=== PATIENT | male | born 1975 | race African-American/Black ===

== ENCOUNTER 2018-02-18 17:00 | Outpatient (RCR) | payer OTHER | END 2018-02-28 12:26 | disposition home or self-care (01) | LOC: WSPT 17:00 | DX: M54.5 Low back pain (principal); G89.29 Other chronic pain ==

== ENCOUNTER → 2018-07-30 | Outpatient (CLI) | payer OTHER | LOC: MHCPAIN 08:32 | DX: G89.29 Other chronic pain (principal); M47.817 Spondylosis without myelopathy or radiculopathy, lumbosacral region; M54.16 Radiculopathy, lumbar region; M53.3 Sacrococcygeal disorders, not elsewhere classified | CPT/HCPCS: G0463 ==

== ENCOUNTER → 2018-08-04 | Outpatient (CLI) | payer OTHER | LOC: MHCPAIN 10:39 | DX: M47.817 Spondylosis without myelopathy or radiculopathy, lumbosacral region (principal); M54.16 Radiculopathy, lumbar region | CPT/HCPCS: J1100; Q9967 ==

== ENCOUNTER → 2018-08-14 | Outpatient (CLI) | payer OTHER | LOC: MHCPAIN 08-07 13:50 | DX: M47.817 Spondylosis without myelopathy or radiculopathy, lumbosacral region (principal); M54.16 Radiculopathy, lumbar region | CPT/HCPCS: J1040; Q9967 ==

== ENCOUNTER → 2018-09-03 | Outpatient (CLI) | payer OTHER | LOC: MHCPAIN 15:48 | DX: G89.29 Other chronic pain (principal); M47.817 Spondylosis without myelopathy or radiculopathy, lumbosacral region; M54.16 Radiculopathy, lumbar region; M53.3 Sacrococcygeal disorders, not elsewhere classified | CPT/HCPCS: G0463 ==

== ENCOUNTER → 2018-09-11 | Outpatient (CLI) | payer OTHER | LOC: MHCPAIN 08:57 | DX: M47.817 Spondylosis without myelopathy or radiculopathy, lumbosacral region (principal); M54.16 Radiculopathy, lumbar region | CPT/HCPCS: J1100; Q9967 ==

== ENCOUNTER → 2018-10-15 | Outpatient (CLI) | payer OTHER | LOC: MHCPAIN 15:05 | DX: G89.29 Other chronic pain (principal); M47.817 Spondylosis without myelopathy or radiculopathy, lumbosacral region; M54.16 Radiculopathy, lumbar region; M53.3 Sacrococcygeal disorders, not elsewhere classified | CPT/HCPCS: G0463 ==

== ENCOUNTER 2019-01-01 15:00 | Outpatient (RCR) | payer OTHER | END 2019-01-04 | disposition home or self-care (01) | LOC: WSC | DX: M47.27 Other spondylosis with radiculopathy, lumbosacral region (principal); M53.3 Sacrococcygeal disorders, not elsewhere classified ==

== ENCOUNTER → 2019-01-14 | Outpatient (CLI) | payer OTHER | LOC: MHCPAIN 15:23 | DX: G89.29 Other chronic pain (principal); M47.817 Spondylosis without myelopathy or radiculopathy, lumbosacral region; M54.16 Radiculopathy, lumbar region; M53.3 Sacrococcygeal disorders, not elsewhere classified | CPT/HCPCS: G0463 ==

== ENCOUNTER → 2019-01-22 | Outpatient (CLI) | payer OTHER | LOC: MHCPAIN 10:05 | DX: M47.817 Spondylosis without myelopathy or radiculopathy, lumbosacral region (principal); M54.16 Radiculopathy, lumbar region | CPT/HCPCS: J1100; Q9967 ==

== ENCOUNTER → 2019-02-04 | Outpatient (CLI) | payer OTHER | LOC: MHCPAIN 13:00 | DX: G89.29 Other chronic pain (principal); M47.817 Spondylosis without myelopathy or radiculopathy, lumbosacral region; M54.16 Radiculopathy, lumbar region; M53.3 Sacrococcygeal disorders, not elsewhere classified | CPT/HCPCS: G0463 ==

== ENCOUNTER 2023-05-24 13:06 | Outpatient (RCR) | payer OTHER | END 2023-06-05 | disposition home or self-care (01) | LOC: WSPT | DX: M12.58 Traumatic arthropathy, other specified site (principal); M54.50 Low back pain, unspecified; G89.29 Other chronic pain ==

== ENCOUNTER 2023-07-31 15:00 | Outpatient (RCR) | payer OTHER | END 2023-08-04 | disposition home or self-care (01) | LOC: WSPT | DX: M12.58 Traumatic arthropathy, other specified site (principal); M54.50 Low back pain, unspecified ==